=== PATIENT | female | born 1990 | race African-American/Black ===

== ENCOUNTER 2017-10-07 20:18 | Emergency (ER) | payer OTHER ==
[~2017-10-07] VITALS: Ht 177.8 cm; Wt 59.0 kg
[~2017-10-07 20:18] MED LIST: ADULT TUSS100 MG/5 M PO; AZITHROMYCIN 2250 MG PO; BACTRIM DS TAB1 EACH PO; BAYER BACK & B1 EACH; BENADRYL25 MG PO; CHERATUSSIN DA480 ML PO; CIPROFLOXACIN500 M1 PO; DEPO-PROVE150 MG/1 M; DEPO-PROVERA; DIFLUCAN150 MG PO; DOXYCYCLINE 10100 MG PO; FLAGYL500 MG PO; FLEXERIL PO; HYDROCODONE-AP1 EAC6 PO; IBUPROFEN 600600 M1 PO; IBUPROFEN 800800 M1 PO; IBUPROFEN 800800 MG PO; MECLIZINE 25 MG25 M1 PO; MEDROLDOSEPACK PO; NAPROSYN500 MG PO; NOHOMEMEDICATIONS; NORCO 5-325 TA1 EACH PO; PERCOCET PO; PHENERGAN 25 MG25 M1 PO; PREDNISONE 20 M20 M1 PO; PROAIR HFA8.5 GM IH; PROCTOSOL-HC28.35 GM RC; PROMETHAZINE-C120 ML PO; TESSALON PERLE100 MG PO; TESSALON200 MG PO; TOBRAMYCIN SULFA5 ML OP; TOBREX5 ML OP; TRAMADOL 50 MG50 MG PO; TRIAMCINOLONE A15 G1 TP; TRIANEX17 GM TP; ULTRAM 50MG TAB50 MG PO; VALIUM5 MG PO; VENTOLIN HFA 1818 GM INH; VICODIN 5-5001 EACH PO; ZOFRAN ODT4 MG PO; ZOFRAN4 MG PO; ZPAK PO
[2017-10-07 20:24] VITALS: BP 113/70
== END 2017-10-07 20:50 | disposition home or self-care (01) ==
LOC: M.ERS 20:18
DX: S01.91XD Laceration without foreign body of unspecified part of head, subsequent encounter (principal); J40 Bronchitis, not specified as acute or chronic; F17.210 Nicotine dependence, cigarettes, uncomplicated; X58.XXXD Exposure to other specified factors, subsequent encounter; Z98.890 Other specified postprocedural states